=== PATIENT | female | born 1935 | race Caucasian/White ===

== ENCOUNTER 2023-06-10 06:26 | Day surgery (SDC) | payer MEDICARE, SELFPAY ==
[2023-06-10] VITALS (7 sets, daily range): BP systolic 127–183; BP diastolic 62–88; PULSE 60–67; RESP 16–62; TEMP 36.4; O2SAT 94–96; BMI 25.6
[2023-06-10] MEDS: NEOMYCIN/BACITRACIN/POLYMYXIN B 1 APPLIC TOPICAL (07:31)
--- NOTE | 2023-06-10 07:35 | PM.ORPRC ---
Procedure Note Date of procedure: 06/10/23 Procedure: PREOPERATIVE DIAGNOSIS: 1. Left carpal tunnel syndrome POSTOPERATIVE DIAGNOSIS: 1. Left carpal tunnel syndrome PROCEDURE: 1. Left open carpal tunnel release SURGEON: Rod Perdomo MD. CHIEF STATION ENGINEER: Suzie Avila ANESTHESIA: Local anesthetic (50:50 mixture of 1% lidocaine with epi and 0.5% marcaine plain) - 10ml total IMPLANTS: None EBL: 2 mL TOURNIQUET: None COMPLICATIONS: None evident INDICATIONS: The patient is a pleasant 87-year-old female who has experienced left hand numbess/tingling affecting the radial 3.5 digits for multiple months. It has progressively gotten worse. Nonoperative management has been tried and failed, and therefore surgery was recommended. DESCRIPTION OF PROCEDURE: Following a thorough discussion of risks, benefits, and alternatives consent was obtained and the operative extremity was marked. The patient was brought to the operating room and placed supine on the operating table. Local anesthesia induction was undertaken in preop holding. No antibiotics were administered as this was planned to be a local case only. Proper time-out was performed identifying proper patient, site, and procedure. The operative extremity was prepped and draped in the appropriate sterile fashion using ChloraPrep. An incision was made in line with the radial border of the ring finger beginning 1 cm distal to the distal wrist crease and progressing for another 2.5cm distal. Caution was taken to stay proximal to Hair's cardinal line. Sharp incision through the skin, subcutaneous tissue, and palmar fascia was performed. The thenar musculature was bluntly elevated off the transverse carpal ligament. The ligament was directly visualized, and divided sharply with a 15 blade. This was released from its most proximal to the most distal extent. Metzenbaum scissor was also utilized to release the fascia extension proximally. We confirmed complete release of the transverse carpal ligament. Closure was performed with 4-O nylon in interrupted fashion. Soft dressings were applied, and the patient was transferred to the recovery room in stable condition. PLAN: 1. Encourage elevation of the operative extremity. 2. Range of motion of the fingers and hand/wrist as tolerated. 3. Ibuprofen/acetaminophen as needed for pain control. 4. Follow up with PA visit or nurse visit in 12-16 days for wound check and suture removal.
== END 2023-06-10 08:08 | disposition home or self-care (01) ==
PROVIDERS: PCP Family Medicine; Visit Provider Orthopaedic Surgery Sports Medicine
PROC: (CPT 64721; principal; 2023-06-10 07:30)
DX: G56.02 Carpal tunnel syndrome, left upper limb (principal)
CPT/HCPCS: 64721

== ENCOUNTER 2023-07-15 06:29 | Day surgery (SDC) | payer MEDICARE, SELFPAY ==
[2023-07-15] VITALS (8 sets, daily range): BP systolic 140–176; BP diastolic 72–88; PULSE 60–65; RESP 16; TEMP 36.5–36.6; O2SAT 94–99; BMI 25.6
[2023-07-15] MEDS: BUPIVACAINE 0.5% 30 ML INJECTION (06:50)
[2023-07-15] MEDS: ETHYL CHLORIDE 1 APPLICATION 1 APPLIC TOPICAL (07:07)
--- NOTE | 2023-07-15 07:08 | SUR.PREOP ---
SAME DAY SURGERY LOCAL INJECTION SITE VERIFICATION WAS PERFORMED BY SURGEON/PA AND PATIENT PRIOR TO LOCAL ANESTHETIC BEING INJECTED TO OPERATIVE SITE.
--- NOTE | 2023-07-15 07:38 | P.ORPRC_ITS ---
Procedure Note Date of procedure: 07/15/23 Procedure: PREOPERATIVE DIAGNOSIS: 1. Right carpal tunnel syndrome POSTOPERATIVE DIAGNOSIS: 1. Right carpal tunnel syndrome PROCEDURE: 1. Right open carpal tunnel release SURGEON: Rod Perdomo MD. ROTARY SCREEN PRINTING MACHINE OPERATOR: Dagoberto Avila ANESTHESIA: Local anesthetic (50:50 mixture of 1% lidocaine with epi and 0.5% marcaine plain) - 10ml total IMPLANTS: None EBL: 2 mL TOURNIQUET: None COMPLICATIONS: None evident INDICATIONS: The patient is a pleasant 87-year-old female who has experienced right hand numbess/tingling affecting the radial 3.5 digits for multiple months. It has progressively gotten worse. Nonoperative management has been tried and failed, and therefore surgery was recommended. DESCRIPTION OF PROCEDURE: Following a thorough discussion of risks, benefits, and alternatives consent was obtained and the operative extremity was marked. The patient was brought to the operating room and placed supine on the operating table. Local anesthesia induction was undertaken in preop holding. No antibiotics were administered as this was planned to be a local case only. Proper time-out was performed identifying proper patient, site, and procedure. The operative extremity was prepped and draped in the appropriate sterile fashion using ChloraPrep. An incision was made in line with the radial border of the ring finger beginning 1 cm distal to the distal wrist crease and progressing for another 2.5cm distal. Caution was taken to stay proximal to Hair's cardinal line. Sharp incision through the skin, subcutaneous tissue, and palmar fascia was performed. The thenar musculature was bluntly elevated off the transverse carpal ligament. The ligament was directly visualized, and divided sharply with a 15 blade. This was released from its most proximal to the most distal extent. Metzenbaum scissor was also utilized to release the fascia extension proximally. We confirmed complete release of the transverse carpal ligament. Closure was performed with 4-O nylon in interrupted fashion. Soft dressings were applied, and the patient was transferred to the recovery room in stable condition. PLAN: 1. Encourage elevation of the operative extremity. 2. Range of motion of the fingers and hand/wrist as tolerated. 3. Ibuprofen/acetaminophen and/or oxycodone as needed for pain control. 4. Follow up with PA visit or nurse visit in 12-16 days for wound check and suture removal.
[2023-07-15] MEDS: NEOMYCIN/BACITRACIN/POLYMYXIN B 1 APPLIC TOPICAL (07:40)
== END 2023-07-15 08:08 | disposition home or self-care (01) ==
PROVIDERS: PCP Family Medicine; Visit Provider Orthopaedic Surgery Sports Medicine
PROC: (CPT 64721; principal; 2023-07-15 07:30)
DX: G56.01 Carpal tunnel syndrome, right upper limb (principal)
CPT/HCPCS: 64721; J0665

== ENCOUNTER 2023-09-15 14:30 | Outpatient (RCR) | payer MEDICARE, SELFPAY | END 2023-12-08 10:54 | disposition home or self-care (01) | PROVIDERS: PCP Family Medicine; Visit Provider Physician Assistant Surgical | DX: G56.01 Carpal tunnel syndrome, right upper limb (principal); M25.511 Pain in right shoulder; M25.512 Pain in left shoulder; R29.898 Other symptoms and signs involving the musculoskeletal system; M25.551 Pain in right hip; M62.81 Muscle weakness (generalized); R29.3 Abnormal posture; Z51.89 Encounter for other specified aftercare | CPT/HCPCS: 97110; 97140; 97162; 97166; 97530; X5282 ==

== ENCOUNTER 2023-10-14 10:30 | Outpatient (RCR) | payer MEDICARE, SELFPAY ==
--- NOTE | 2023-09-01 11:57 | OT.OPOE ---
OT Outpatient Ortho Eval OT Outpatient Ortho Eval* Start: 09/01/23 07:25 Freq: Status: Active Protocol: Document 09/01/23 07:25 AMB (Rec: 09/01/23 11:54 AMB [id number]) E-signed By Hyun Bella, OTR/L, CLT, NATURAL RESOURCES ENGINEER OT OP Ortho Eval Details Complexity Complexity Medium Insurance Information Insurance Information Medicare B Outpatient History/Precautions Current Condition/Medical Diagnosis Referring Provider Dr Perdomo Treatment Diagnosis LUE CTR release, RUE CTR, pain , decreased ROM, weakness BUE Date of Onset 07/15/23 DOS on the LUE, DOS on the LUE Medical Conditions HTN,CA,Latex Allergy Other Conditions Pt is currently seeing PT for her shoulders and legs. PMH: Pt states she at one time had a diagnosis of diabetes but now only has her A1C checked yearly, and it's always been good. 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 PMH (copied from ortho chart): Medical History (Updated 07/30 @ 10:52 by Dagoberto Aquino PA-C) GERD (gastroesophageal reflux disease) K21.9 - Gastro-esophageal reflux disease without esophagitis (ICD-10) Hypertension I10 - Essential (primary) hypertension (ICD-10) High cholesterol E78.00 - Pure hypercholesterolemia, unspecified (ICD-10) Surgical History (Updated @ 16:24 by Abbi Antunez ~ [facility], [facility]) History of carpal tunnel surgery of right wrist () Z98.890 - Other specified postprocedural states (ICD-10) History of carpal tunnel surgery of left wrist () Z98.890 - Other specified postprocedural states (ICD-10) H/O section Z98.891 - History of uterine scar from previous surgery ( ICD-10) H/O: hysterectomy Z90.710 - Acquired absence of both cervix and uterus (ICD-10 ) Medications (copied from ortho chart): atorvastatin 20 mg PO DAILY carvedilol 6.25 mg PO BID cholestyramine (with sugar) 4 gram ea PO Lactobacillus acidophilus ( Probiotic) 100 mmu cells PO DAILY lisinopril 40 mg PO DAILY omeprazole 20 mg PO BID sertraline 25 mg PO DAILY Medical/Functional History Medical History Reviewed Yes Prior Level of Function/Mobility Pt has had full functional use of BUE with pain, weakness, paresthesia in BUE for ~ 1 year due to chronic CTS. [place], has a son that lives on the same place. Pt is independent with all household management, personal cares, shopping, etc. Pt still drives and attends her medical appointments alone, sometimes her children with assist if needed. Social History Employment Status Retired Hobbies Pt enjoys gardening, [employer] Enjoys walking Ortho Subjective Subjective Subjective Pt states she has been having pain all over her body since her carpal tunnel surgeries, states her shoulders and hands have been especially painful, but her legs have been bothering her as well. Pt states she is concerned about her inability to move her hands and wrists. Pt having great difficulty with food prep, opening containers, holding the steering wheel, buttoning buttons, zipping zippers, etc. Pt rates her average pain at 8-9/10, described as throbbing, aching all over. Pain Assessment Pain Present Pain Present Pain Reported Range of Motion and Strength Elbow/Forearm Range of Motion and Strength Elbow/Forearm Range of Motion and 09/01/23 AROM of the BUE elbow Strength and forearms is WFL but pt states it's sore to move her elbows and forearms, sometimes worse than others. Wrist Range of Motion and Strength Wrist Range of Motion and Strength 09/01/23 AROM of the RUE wrist flexion is 65, LUE is 60. AROM of the RUE wrist ext is 40, LUE is 35. AROM of the RUE wrist US is 20, LUE is also 20. AROM of the RUE wrist RD is 15, LUE is 10. Hand/Finger/Thumb Range of Motion and Strength Hand/Finger/Thumb Range of Motion and 09/01/23 AROM of the RUE IF MP Strength is 0-65, PIP is -10-65, DIP is 0-40. AROM of the RUE MF MP is 70, PIP is -10-65, DIP is 0 -50. AROM of the RUE RF MP is 0-75, PIP is -10-90, DIP is - 5-30. AROM of the RUE SF MP is 0-80, PIP is -5-50, DIP is 0-30. AROM of the YUMI IF mP is 0-50, PIP is 0-85, DIP is 0-45. AROM of the LUF MF MP is 0-60, PIP is -10-40, DIP is 0-40. AROM of the RUE RF MP is 0-45, PIP is -10-80, DIP is 0-45. AROM of the LUE SF MP is 0-75, PIP is -10-70, DIP is 0-65. AROM of the LUE thumb MP flexion is 50, palmar abd is 60, radial abd is 50, IP is 45 . AROM of the RUE thumb MP flexion is 55, palmar abd is 60, radial abd is 50, IP is 40 . Goniometric Comments Goniometric Comments Goniometric Comments 09/01/23 Pt c/o pain with all motions of BUE hands, it aches Hand Pinch/Home Care Companion Strength Hand Right Home Care Companion Strength Position 1 (lbs) 7 Lateral Pinch Strength (lbs) 7 Three Point Pinch (lbs) 8 Left Home Care Companion Strength Position 1 (lbs) 15 Lateral Pinch Strength (lbs) 9 Three Point Pinch (lbs) 8 Comments Comments 09/01/23 Pt notes increased pain with all assistant pressman and pinch strength testing. OT Objective Data Hand Hand Dominance Right Observations/Posture/Limb Appearance Objective Observations 09/01/23 Fingers and hands appear to be swollen, joints are puffy, hands are warm, no redness, capillary refill is WNL. Skin/Wounds/Edema Comments 09/01/23 Incisional areas are both very well healed, no s/s of infection. Sensation Sensation Assessment Summary Comments 09/01/23 Modified monofilament testing was completed of BUE hands, finger tips only. LUE = 2.83 all digits, RUE 2.83 2nd-5th digits, 3.61 thumb. OT Problems Problems Problems Decreased Strength,Decreased Range of Motion,Decreased Dexterity,Pain,Decreased Coordination,Sensory Sensitivity,Lifting,Gripping, Pinching Other Problems Writing,Opening Containers, Fasteners Patient Potential Good Assessment Assessment Assessment Pt is a very pleasant 88yo female with complaints of pain , swelling, weakness and limited AROM in BUE with onset following BUE CTR. Pt states she also has pain in multiple other areas of her body, especially shoulders and legs. Pt is reports being significantly limited in her ability to use her hands to perform ADLs and IADLs that require gripping, pinching or lifting. Pt denies having any of these sxs prior to her CTR. Pt is seeing PT to address shoulders and legs. Pt will benefit from skilled OT intervention to address the above concerns in order to resume, full, pain-free use of her BUE hands. Occupational Therapy Treatment Plan - OP Potential Rehabilitation Potential Good Set Goals Goals Set with Patient Yes Goals Goals 1. Pt will be independent and compliant with HEP and clinic recommendations in order to restore full, pain-free use of her BUE. 4 weeks 2. Pt will demonstrates full, pain-free AROM of BUE in order to improve ability to hold utensils and close fasteners/ button buttons, and zip zippers. 8 weeks 3. Pt will demonstrate improved assistant pressman strength in BUE to at least 30# in order to improve her abiltiy to open containers, lift pots and pans , and lift laundry. 10 weeks. Target Date 12/05/22 Treatment Plan Treatment Plan Evaluation,Edema Control,Joint Mobilization,Manual Therapy, Splinting,Ultrasound,Wound Care/Scar Management, Therapeutic Exercise, Therapeutic Activities,Self Care/Home Management,Education Expected Frequency 1-2x Week Expected Duration 6-8 Weeks Home Program Home Program Home Program Initiated Home Program Specifics 09/01/23 Provided training and practice in HEP for differential tendon glides, gentle AAROM of wrists and forearms. Following demo, pt is able to complete exs with minimal cues. Pt was provided with written instructions for use at home. She was also inst in and given written info regarding contrast baths. She was given compression gloves for BUE to help decrease swelling in her hands. Certification Certification I Certify That: Therapy Services Provided, Therapy Plan Established, Therapy Plan Reviewed Recertification Information Recertification Information Initial Certification Date 09/01/23 Recertification Due Date 11/30/23 Reasons to Continue Skilled Therapy Initiated OT today secondary to BUE CTR with weakness, pain , and limited AROM in BUE hands which limits full participation in ADLs and IADLs Rehabilitation Potential Good Continued Plan of Care and Interventions Please see POC above Provider Signature Shows Agreement With POC & Medical Necessity Physician Comment/Change Comment or Changes Physician NPI Number #
== END 2023-10-14 11:10 | disposition home or self-care (01) ==
PROVIDERS: PCP Family Medicine; Visit Provider Orthopaedic Surgery Sports Medicine
DX: G56.01 Carpal tunnel syndrome, right upper limb (principal); Z98.890 Other specified postprocedural states; R53.1 Weakness; Z51.89 Encounter for other specified aftercare
CPT/HCPCS: 97110; 97140; 97166; X5282

== ENCOUNTER 2025-01-26 10:30 | Outpatient (RCR) | payer MEDICARE, SELFPAY | END 2025-01-26 17:09 | disposition home or self-care (01) | PROVIDERS: PCP Family Medicine; Visit Provider Family Medicine | DX: M54.2 Cervicalgia (principal); M25.511 Pain in right shoulder; M25.619 Stiffness of unspecified shoulder, not elsewhere classified; Z51.89 Encounter for other specified aftercare | CPT/HCPCS: 97110; 97112; 97140; 97161 ==